=== PATIENT | male | born 1980 | race Caucasian/White ===

== ENCOUNTER → 2016-12-07 | Outpatient (CLI) | payer OTHER | END | disposition home or self-care (01) | LOC: C.LAB 12:44 | PROVIDERS: ATTEND Specialist | DX: Z11.3 Encounter for screening for infections with a predominantly sexual mode of transmission (principal); Z11.4 Encounter for screening for human immunodeficiency virus [HIV]; Z11.59 Encounter for screening for other viral diseases ==

== ENCOUNTER → 2017-07-11 | Outpatient (CLI) | payer OTHER ==
--- NOTE | 2017-07-12 05:31 | PAP/PSG TECHNICIAN REPORT ---
[facility] Sealer Sander Polysomnogram Report Study name: None Report date: 07/12/2017 Study date: 07/11/2017 Referring Physician: DR. BC VANN M.D. Name: JAREK JALLOH Interpreting Physician: Baldomero Berry M.D. Date of : 1980 Sealer Sander: Jie Pa RPSGT. Sex: Male Age: 37 Study Type: PSG Weight: 260 lbs Height: 37 years, Height 5' 11" BMI: 36.26 Medications: NONE LISTED Patient History 37 yr-old male here for a baseline study. He has a history of snoring, headaches, and daytime sleepiness. His [place] scale is 6. The test was started on room air. ETCO2 testing was not utilized during this study. Room 3 Parameters Monitored NPSG: E1-M2, E2-M1, Fp1-M2, Fp2-M1, F3-M2, F4-M2, F4-M1, C3-M2, C4-M2, C4-M1, O1-M2, O2-M2, O2-M1, T3-M2, T4-M1, P3-M2, P4-M1, CHIN1, CHIN2, HR, EKG, Legs, PFLOW, SNOR, FLOW, CFLOW, Tidal Volume, THOR, ABDO, SpO2, PLTH, CPRESS, ETCO2 Wave, ETCO2, pH Sleep Architecture Sleep Stages Time at Lights Off 10:55:45 PM STAGES Time (min.) TST (%) Time at Lights On 5:07:45 AM Wake 95.5 -- Total Recording Time (TRT) 372.00 min. N1 40.0 14 Total Sleep Period (TSP) 305.5 min. N2 151.5 55 Total Sleep Time (TST) 276.5min. N3 52.5 19 Awake Time 95.5 min. REM 32.5 12 Wake after Sleep Onset 76.0 min. Sleep Efficiency (SE) 74 % Sleep Onset Latency (PHILLY) 19.5 min. Number of Stage 1 Shifts None Awakenings 8 Stage Changes 52 Number of REM periods 2 REM 32.5 12 REM Latency 158.5 min. NREM 244.0 88 Body Position Analysis Supine Right Left Side Prone Vertical Total Sleep Time (min.) 17.7 130.4 145.6 276.02 0.0 0.0 Total Sleep Time (%) 0% 47% 53% 100 0% N/A% Total Sleep Time REM (min.) 0.0 32.5 0.0 None 0.0 0.0 Total Sleep Time NREM (min.) 0.5 97.9 145.6 None 0.0 0.0 Intermittent Wake (min.) 17.2 15.5 62.8 None 0.0 0.0 Total Sleep Period (%) 2% None None None None None Arousals Myoclonus (PLM) * Events Count Index Events Count Index Spontaneous 27 6 Events Awake (PLMW) 93 58.4 Respiratory 14 3.5 Events Asleep w/ Arousal (PLMA) 17 3.7 PLM 17 4 Events Asleep w/o Arousal (PLMS) 51 11.1 Snoring 31 7 Total Asleep 68 14.8 Total 89 19 Total 161 26 Respiratory Analysis * CA OA MA CH H RERA Total Count 5 1 0 0 51 2 57 Index 1.1 0.2 0.0 0 11.1 0 12.8 Mean Duration 16.6 13.9 0.0 0.00 18.5 19.1 18.3 Longest Duration 21.6 13.9 0.0 0.00 0.0 20.0 37.4 Respiratory Event Summary Total Supine ~Supine Right Left Prone REM NREM Apneas Count 6 0 6 3 3 N/A 0 6 Index 1.3 0 1 1.4 1.2 N/A 0 1 Hypopneas (4% Desat) Count 51 0 51 26 25 N/A 13 38 Index 11.1 0.0 11 12.0 10.3 N/A 24.0 9.3 Apneas & All Hypopneas Count 57 0 57 29 28 N/A 13 44 Index 12.4 0 12 13 12 N/A 24.0 10.8 Respiratory Events (Door Closer Mechanic+All Hyp+RERA) Count 57 0 59 29 30 N/A 13 44 Index 12.8 0 13 13.3 12.4 N/A 24.0 11.3 Respiratory Related Arousal Count 14 0 16 5 11 N/A 0 16 Index 3.5 0 3 2 5 N/A 0 4 Snoring Analysis Supine Right Left Prone REM NREM Total Snore duration 81.0 min Snores count 1 1,560 1,537 N/A 285 2,813 3,098 Snore mean duration 1.6 Sec Snores index 125 718 633 N/A 526.2 691.7 672.3 TST with snoring (%) 29.3% Desaturation Event Summary: Minimum %SpO2 Event Count Mean/Min/Max Duration(sec.) Desaturation Index % Time In Bed > 90 106 18.7 / 4.5 / 56.5 20.3 93.3 86 - 90 4 8.8 / 4.8 / 12.8 11.0 6.5 81 - 85 1 9.8 / 9.8 / 9.8 87.8 0.2 76 - 80 0 N/A 0.0 0.0 71 - 75 0 N/A 0.0 0.0 66 - 70 0 N/A 0.0 0.0 61 - 65 0 N/A 0.0 0.0 56 - 60 0 N/A 0.0 0.0 51 - 55 0 N/A 0.0 0.0 < 50 0 N/A 0.0 0.0 Total REM NREM Awake <50% 0.0 min. 0.0 min. 0.0 min. 0.0 min. 51 - 60% 0.0 min. 0.0 min. 0.0 min. 0.0 min. 61 - 70% 0.0 min. 0.0 min. 0.0 min. 0.0 min. 71 - 80% 0.0 min. 0.0 min. 0.0 min. 0.0 min. 81 - 90% 22.5 min. 4.1 min. 16.6 min. 1.8 min. 91 - 100% 313.5 min. 28.4 min. 225.1 min. 60.0 min. Average 93 93 92 94 Minimum SpO2 81 81 86 83 Desaturation Event Index 17.6 29.5 15.0 20.1 # Desat. Events below 89% 35 8 22 5 Time(%) with Saturation below 89% 1.5 0.5 0.8 0.2 Time(min.) with Saturation below 89% 5.0 1.7 2.7 0.6 Time (mins) REM (mins) NREM (mins) % of TST SpO2 Below 90% 59 12 N47 3.7 SpO2 Below 88% 8 0 0 1 Heart Rate Analysis Min (bpm) Max (bpm) Average (bpm) Awake 48 129 65 NREM 37 127 58 REM 48 75 59 Overall 37 127 58 Supplemental O2 Values Minimum O2 level: None Value Start Time End Time Sealer Sander Comments Mr. Jalloh slept in the right and left positions. No cardiac arrhythmias were noted. PLMs were noted. No bruxism noted. Snoring was noted and scored as a 3 on a scale of 1 through 5. (0=no snoring, 5=snoring loud enough to be heard through a closed door or down the jacobo way). He awoke to use the restroom two times during the night. After returning from the bathroom the second time, he stated that he was awake and asked if he could end the test a little early. Mr. Jalloh stated that he slept almost the same as usual. The final report will be interpreted and signed by a sleep physician. The completed physician report will then be placed in the patient medical record. Therapy (cm H2O) 0 TIB (min.) 372.0 TST (min.) 276.5 Sleep Onset (min.) 19.5 REM Onset From Sleep (min.) 158.5 Sleep Efficiency % 74 Wakefulness (%) 26 Wakefulness (min.) 95.5 NREM 1 (%) 14 NREM 1 (min.) 40.0 NREM 2 (%) 55 NREM 2 (min.) 151.5 NREM 3 (%) 19 NREM 3 (min.) 52.5 REM (%) 12 REM (min.) 32.5 # Arousals 89 Arousal Index 19 # Snore 3,098 Snore Index 672.3 AHI 12.4 AHI Supine 0 AHI Non-Supine 12 NREM AHI 10.8 REM AHI 24.0 RDI 12.8 # Obstructive Apnea 1 # Central Apnea 5 # Mixed Apnea 0 # Hypopneas 51 RERAs 2 Total Respiratory Events 59 Time Below SpO2 89% (min.) 4.4 Mean NREM SpO2 (%) 92 Mean REM SpO2 (%) 93 Mean Sleep SpO2 (%) 93 Min NREM SpO2 (%) 86 Min REM SpO2 (%) 81 Position Supine (min.) 17.7 Position Non-supine (min.) 276.0 LM Index Sleep 14.8 LM Index NREM 16.7 LM Index REM 0.0 Mean Heart Rate (bpm) 58 Min Heart Rate (bpm) 37
--- NOTE | 2017-07-12 16:47 | POLYSOMNOGRAPH REPORT ---
CLINICAL DATA: A 37-year-old male with BMI of 36.[address] Roel Conway for evaluation of snoring, headaches, and daytime fatigue. His Plato Sleepiness Score was 6/24. SLEEP ARCHITECTURE: Total sleep period was 305.5 minutes. Total sleep time was 276.5 minutes divided between 244 minutes of non-REM sleep and 32.5 minutes of REM sleep. Sleep onset latency was 19.5 minutes. REM latency was slightly delayed at 158.5 minutes. Sleep efficiency was 74%. Wake after sleep onset was elevated at 76 minutes. Sleep consisted of stage N1 14%, stage N2 55%, stage N3 19%, and REM 12%. AROUSAL DATA: 89 arousals were recorded for an index of 19 per hour. 14 were due to respiratory events. 17 were due to PLMs events. PERIODIC LIMB MOVEMENTS DATA: 68 limb movements during sleep were noted for an index of 14.8 per hour with arousal index of 3.7 per hour. RESPIRATORY DATA: Mild sleep apnea was documented. The AHI was 12.4. The RDI was 12.8. There were 5 central and 1 obstructive apneic episodes. The longest duration of apnea was 21.6 seconds. There were 51 hypopneic episodes with the mean duration of 18.5 seconds. There were 2 RERAs. The longest RERA was 20 seconds. OXIMETRY DATA: Mild nocturnal hypoxemia was seen. The oxygen giancarlo was 81% during REM. The mean saturation was 93%. Time below 88% was 8 minutes. EKG: Heart rates ranged from 37-127 beats per minute. No arrhythmias were noted. TECHNICIAN HELPER INSTRUMENT'S COMMENTS: The patient slept in the right and left positions. Snoring was moderate, rated 3 on a scale of 1 through 5. After returning from the bathroom the second time, he was awake and asked that this test be ended early because he did not feel he would go back to sleep. IMPRESSION: Mild sleep apnea/hypopnea with an apnea-hypopnea index of 12.4 and an respiratory disturbance index of 12.8 with mild nocturnal hypoxemia. RECOMMENDATIONS: The patient may benefit from weight loss, use of an oral appliance, or repeat sleep study with CPAP. LICHAD
== END | disposition home or self-care (01) ==
LOC: C.NEUR 21:00
PROVIDERS: ATTEND Family Medicine
DX: G47.30 Sleep apnea, unspecified (principal)